=== PATIENT | male | born 1995 | race Caucasian/White ===

== ENCOUNTER 2019-08-29 11:52 | Inpatient (IN) | payer OTHER ==
[~2019-08-29] VITALS: Ht 182.9 cm; Wt 93.5 kg
[2019-08-29 12:58] LABS: HEMATOCRIT 47.1 % (42.0-52.0); HEMOGLOBIN 15.7 g/dl (13.5-17.5); MEAN CORPUSCULAR HEMOGLOBIN 30.2 pg (27.0-33.0); MEAN CORPUSCULAR HGB CONC 33.3 g/dl (32.0-36.5); MEAN CORPUSCULAR VOLUME 90.6 fl (80.0-96.0); PLATELET COUNT, AUTOMATED 234 10^3/uL (150-450); WHITE BLOOD COUNT 7.4 10^3/uL (4.0-10.0)
[2019-08-29 13:21] LABS: AMPHETAMINES LEVEL URINE NEGATIVE (NEGATIVE); BARBITURATES URINE NEGATIVE (NEGATIVE); BENZODIAZEPINES URINE NEGATIVE (NEGATIVE); CANNABINOIDS URINE NEGATIVE (NEGATIVE); COCAINE METABOLITE URINE NEGATIVE (NEGATIVE); METHADONE URINE NEGATIVE (NEGATIVE); OPIATES URINE NEGATIVE (NEGATIVE); PHENCYCLIDINE URINE NEGATIVE (NEGATIVE)
[2019-08-29 13:33] LABS: ACETAMINOPHEN LEVEL < 2.0 UG/ML (10.0-30.0); ALBUMIN 4.4 GM/DL (3.2-5.2); ALT/SGPT 45 U/L (12-78); BILIRUBIN,DIRECT 0.1 MG/DL (0.0-0.2); BILIRUBIN,TOTAL 0.3 MG/DL (0.2-1.0); BLOOD UREA NITROGEN 6 MG/DL (7-18); CALCIUM LEVEL 8.5 MG/DL (8.5-10.1); CARBON DIOXIDE LEVEL 30 MEQ/L (21-32); CHLORIDE LEVEL 106 MEQ/L (98-107); CREATININE FOR GFR 0.99 MG/DL (0.70-1.30); ETHYL ALCOHOL (ETHANOL) 0.068 % (0.000-0.010); GLOMERULAR FILTRATION RATE > 60.0 (>60); GLUCOSE, FASTING 90 MG/DL (70-100); POTASSIUM SERUM 4.3 MEQ/L (3.5-5.1); SALICYLATE LEVEL < 1.7 MG/DL (5.0-30.0); SODIUM LEVEL 142 MEQ/L (136-145); TOTAL PROTEIN 7.9 GM/DL (6.4-8.2)
--- NOTE | 2019-08-30 07:25 | ECGEPIP ---
[facility] - ED Test Date: 2019-08-29 Pat Name: BARI CHAUDHARY Department: Room: - Gender: Male Health Record Technician: : 1995 Requested By: JOHN DOMINGO Order Number: [id number] Reading MD: Elma Hunt Measurements Intervals [place] Rate: 97 P: 54 ME: 142 QRS: 47 QRSD: 99 T: 17 QT: 344 QTc: 437 Interpretive Statements SINUS RHYTHM LEFT ATRIAL ENLARGEMENT No prior Electronically Signed on 08-30-2019 7:25:20 EST by Elma Hunt
[2019-08-30] MEDS ORDERED: ACETAMINOPHEN TAB 650MG DOSE (2X325MG) PO PRN (13:45)
[2019-08-30] MEDS ORDERED: MOM 30ML SUSPENSION UDC PO PRN (13:45)
[2019-08-30] MEDS ORDERED: MAALOX 30 ML SUSP *UDC PO PRN (13:45)
[2019-08-30] MEDS ORDERED: traZODone 50 MG TAB PO PRN (13:45)
[2019-08-30 14:26] VITALS: BP 141/92
[2019-08-30] MEDS ORDERED: NICOTINE 7 MG/24 HR TRANSDERMAL TD PRN (14:30)
--- NOTE | 2019-08-30 17:04 | CR.PDOC ---
General Date of Consultation: Aug 30, 2019 Referring Provider: A Consultation REASON FOR CONSULTATION/CHIEF COMPLAINT: Physical examination HISTORY OF PRESENT ILLNESS: Patient is 24 years old male with past medical history of depression presented hospital after suicidal attempt. During my interview patient denied any significant health problem except mental. Patient denies fever, chills, nausea, vomiting, shortness of breath, palpitations, diarrhea or dysuria. ALLERGIES: Please see below. HOME MEDICATIONS: Please see below. PAST MEDICAL HISTORY: Depression PAST SURGICAL HISTORY: None FAMILY HISTORY: Father: Healthy Mother: Healthy Siblings: Healthy SOCIAL HISTORY: Marital status and/or living arrangements: Single Tobacco use: Smokes 1 pack in a week ETOH: Drink heavily on the weekend Illicit drug use: None IV drug use: None REVIEW OF SYSTEMS: 10 point review system is negative except as listed above PHYSICAL EXAMINATION: VITAL SIGNS: Please see below. GENERAL APPEARANCE: NAD HEENT: PERRLA, EOMI RESPIRATORY: CTA CARDIOVASCULAR: S1-S2 ABDOMEN: Nontender, nondistended EXTREMITIES: No cyanosis, no swelling NEUROLOGICAL: Nonfocal, cranial nerves from 2-12 intact LABORATORY DATA: Please see below. ASSESSMENT/PLAN: Patient is 24 years old male with past medical history of depression presented hospital after suicidal attempt. During my interview patient denied any significant health problem except mental. Patient denies fever, chills, nausea, vomiting, shortness of breath, palpitations, diarrhea or dysuria. Patient is physically healthy young man. I would recommend to put him on CIWA protocol when necessary. Follow-up as per request Vital Signs/I&O Vital Signs Date Time Temp Pulse Resp B/P (MAP) Pulse Ox O2 Delivery O2 Flow Rate FiO2 08/30/19 14:26 66 16 141/92 (108) 99 Room Air 08/30/19 13:56 98.3 Allergies Coded Allergies: No Known Drug Allergies (Verified Allergy, Unknown, 08/29/19) Home Medications No Active Prescriptions or Reported Meds SHAVON GILES DO Aug 30, 2019 17:04
[2019-08-31 06:24] VITALS: BP 129/74
--- NOTE | 2019-08-31 14:34 | MHHPEPDOC ---
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 reporting that he had had a recent suicide attempt several days ago. When he had discussed it with his friends, he reportedly was brought in by the police for assessment and was admitted out of an abundance of caution. I met with the patient. He reported that he had want to talk about the attempt and since he had been brought in he had felt that he had actually been doing relatively well. He reports that he feels that his depression has improved a bit, but is interested in trying an antidepressant. He reports that he does have a history of some low mood and low frustration tolerance, insomnia especially around the holidays as he reports that he is frequently not given leave due to his various behaviors. He has served in the [employer] before, he is currently serving the army. He reports that he has not been suicidal since the attempt and has remorse about it. Review Of Systems Depression: As above. Anxiety: The patient denies any excessive worry associated with physical symptoms. They deny any experience of discreet panic in the past. Jacklyn: The patient denies any episodes of euphoria/dysphoria associated with decreased need for sleep, hedonism, talkatively or impulsivity lasting longer than 5 days. Psychotic: The patient denies any experiences of auditory or visual hallucinations. They deny any episodes of paranoia or delusional thinking in the past Trauma: The patient denies any traumatic events associated with nightmares or intrusive thoughts. Borderline: The patient screens negative for borderline personality at this junction. Past Psychiatric History The patient reports no history of psychiatric admissions, medication trials or c urrent follow up. Allergies Please see below. Family Psychiatric History The patient denies/is unaware any history of mental health history including addictions and suicide. Social History The patient is a never man with no children who self-identifies as bisexual. He [place] [facility], he subsists on income. 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 He grow up in a family where his parents were and had a good relationship with both. He denies any history of trauma or abuse growing up. Substance Abuse History The patient reports having trouble with drinking as he will "drink until he blacks out, when he does drink." Has been in the [employer] program a year ago. Reports tobacco use, roughly a cigarette a day. Denies any other illicit drug use. Medical History Patient has no significant past medical history. Mental Status Examination General: Well dressed with good hygiene Speech: Spontaneous and fluid Thought processes: Linear and logical MSK: Smooth and coordinated gait, no signs of tremors or involuntary orofacial movements Thought content: Future orientated Abstract reasoning, and computation: Intact Description of associations: Intact Description of abnormal or psychotic thoughts: Denies any suicidal or homicidal ideation. Denies any auditory or visual hallucinations. Does not appear to be responding to internal stimuli. Does not appear to be endorsing any bizarre or paranoid ideation. 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 Alcohol use disorder, unspecified. Tobacco use disorder, unspecified. Assessment and Plan The patient a 24-year-old man with a history of adjustment after joining the . He has a long history in the and has adapted generally well, it appears that being far away from his family as he reported causes him to enter adjustment states. The reported suicide attempt was a relatively low lethality and had been several days prior to his admission. He had actually wanted to present in order to talk about it, which demonstrates good insight and improved ability to cope. He does not meet involuntary criteria and will be discharged tomorrow as he does not wish to stay further. Disposition The patient will be discharged. Problem List 1. Risk for suicide. 2. Depression. 3. Ineffective coping. Initial Treatment Plan 1. Patient was admitted on a 9.39 legal status. 2. Complete history was obtained. 3. With patients permission, family will be contacted and database will be expanded. 4. Patients medication regimen will be reviewed and changed accordingly. 5. Patient will be provided with protected environment. 6. Patient will be treated with individual, group, and milieu therapies. 7. Patient will receive supportive psych-education. 8. Discharge planning will commence immediately. 9. Outpatient follow-up treatment will be strongly recommended. 10. The initial treatment plan will focus initially on: Estimated Length Of Stay Two days. Time Spent 70 minutes. Friday Vital Signs Vital Signs Date Time Temp Pulse Resp B/P (MAP) Pulse Ox O2 Delivery O2 Flow Rate FiO2 08/31/19 06:24 98.6 72 14 129/74 (92) Room Air 08/30/19 14:26 99 Medications No Active Prescriptions or Reported Meds Allergies Coded Allergies: No Known Drug Allergies (Verified Allergy, Unknown, 08/29/19) HEENA GIORDANO DO Aug 31, 2019 14:34
[2019-08-31 17:08] VITALS: BP 112/64
[2019-08-31] MEDS: buPROPion **XL** TABLET 150MG (WELLBUTRIN XL) PO SCH (19:59)
[2019-09-01 06:07] VITALS: BP 138/62
[2019-09-01] MEDS: buPROPion **XL** TABLET 150MG (WELLBUTRIN XL) PO SCH (08:13)
--- NOTE | 2019-09-01 11:42 | MHDSPDOC ---
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 Alcohol use disorder, unspecified. Tobacco use disorder, unspecified. 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 When he had discussed it with his friends, he reportedly was brought in by the police for assessment and was admitted out of an abundance of caution. I met with the patient. He reported that he had want to talk about the attempt and since he had been brought in he had felt that he had actually been doing relatively well. He reports that he feels that his depression has improved a bit, but is interested in trying an antidepressant. He reports that he does have a history of some low mood and low frustration tolerance, insomnia especially around the holidays as he reports that he is frequently not given leave due to his various behaviors. He has served in the [employer] before, he is currently serving the army. He reports that he has not been suicidal since the attempt and has remorse about it. Consultants Involved Hospitalist/PCP screening Treatment and Progress On The Unit The patient was admitted to the inpatient mental health unit. He was notably absent of any signs of major mental health problems, reporting mild depression but that the suicide attempt had relatively low lethality and had been several days prior to his presentation. The patient denied suicidal or homicidal ideation and after 48 hours of observation, the patient was discharged in good charisma as he requested to leave, did not meet involuntary criteria as he had been denying suicidal or homicidal ideation, he had a normal mental status exam, cooperative, pleasant and was in behavioral control. The patient was started on Wellbutrin 150 mg daily with positive effects and was continued with this as an outpatient. Discussed the risks, benefits and potential side effects with the patient. 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 Discharge Assessment 24-year-old man with a history of potential alcohol problems combined with depression/adjustment disorder, is admitted after reported suicide attempt 4 days prior to the presentation. He was admitted out of an abundance of caution, however he does not meet involuntary criteria and declines a further voluntary stay. Mental Status Examination General: Well dressed with good hygiene Speech: Spontaneous and fluid Thought processes: Linear and logical MSK: Smooth and coordinated gait, no signs of tremors or involuntary orofacial movements Thought content: Future orientated Abstract reasoning, and computation: Intact Description of associations: Intact Description of abnormal or psychotic thoughts: Denies any suicidal or homicidal ideation. Denies any auditory or visual hallucinations. Does not appear to be responding to internal stimuli. Does not appear to be endorsing any bizarre or paranoid ideation. Judgment: fair Insight: fair Orientation: Alert and orientated 3 Cognition: Grossly normal Recent and remote memory: Intact Attention span and concentration: Intact Fund of knowledge: Adequate Mood: "okay" Affect: Euthymic with a full range Follow Up The social work team worked during the predischarge meeting in order to evaluate for further issues of lethality address them fully before discharge. They worked on safety planning with the patient's family members in order to ensure that the patient will have a safe and effective discharge. Time Spent The amount of time spent in the coordination of care for this patient was approximately 60 minutes. Friday Vital Signs/I&Os Vital Signs Date Time Temp Pulse Resp B/P (MAP) Pulse Ox O2 Delivery O2 Flow Rate FiO2 09/01/19 06:07 98.4 78 14 138/62 (87) Room Air 08/30/19 14:26 99 Medications Scheduled Bupropion Hcl (Bupropion Xl) 150 Mg Tab.er.24h, 150 MG PO DAILY for mood for 7 Days, #7 Scheduled PRN Nicotine (Nicotine Patch) 7 Mg Patch.td24, 1 PATCH TD DAILYPRN PRN for nicotine withdrawal for 30 Days, #30 Allergies Coded Allergies: No Known Drug Allergies (Verified Allergy, Unknown, 08/29/19) HEENA GIORDANO DO Sep 01, 2019 11:42
[2019-09-01] MEDS ORDERED: NICO7PA TD (12:02)
[2019-09-01] MEDS ORDERED: BUPR150T3 PO (12:02)
== END 2019-09-01 14:00 | disposition home or self-care (01) | DRG 882 ==
LOC: M ED 11:52 → M ED INP 08-30 13:42 → M PSY 08-30 14:15
PROVIDERS: ADMIT Psychiatry & Neurology Addiction Medicine; ATTEND Psychiatry & Neurology Addiction Medicine
DX: F43.25 Adjustment disorder with mixed disturbance of emotions and conduct (principal); F10.10 Alcohol abuse, uncomplicated; F17.200 Nicotine dependence, unspecified, uncomplicated